=== PATIENT | female | born 1940 | race Caucasian/White ===

== ENCOUNTER 2018-02-12 08:46 | Emergency (ER) | payer MEDICARE, BC ==
[2018-02-12 09:00] VITALS: BP 110/57
--- NOTE | 2018-02-12 09:46 | UC ---
Evy Moses Gabriel, scribed for Yessica Irwin MD on 02/12/18 at 0938 . Skin Complaint HPI - HPI Summary HPI Summary: This patient is a 77 year old F presenting to [facility] c/o a dark spot on her neck that she noticed yesterday while looking in the mirror at her new haircut. The patient rates the pain 0/10 in severity. Patient denies pain. Pt has had two precancerous spots one on her leg and one on her nose. No hx of skin cancer. 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 no drainage, no trauma. Pt unsure how long present. Patients medication reviewed this visit. - History of Current Complaint Chief Complaint: UCSkin Time Seen by Provider: 02/12/18 09:31 Stated Complaint: SPOT ON BACK OF NECK Hx Obtained From: Patient Onset/Duration: Still Present Timing: Constant Onset Severity: Mild Current Severity: Mild Pain Intensity: 0 Pain Scale Used: 0-10 Numeric Location: Other - back of neck Associated Signs & Symptoms: Positive: Negative - pain - Allergy/Home Medications Allergies/Adverse Reactions: Allergies Allergy/AdvReac Type Severity Reaction Status Date / Time No Known Allergies Allergy Verified 02/12/18 08:59 Home Medications: Home Medications Amlodipine Besylate [Norvasc 5 mg tab] 5 mg PO DAILY 02/12/18 [History Confirmed 02/12/18] Calcium Carbonate/Vitamin D3 [Calcium 600 + Vit D Tablet] 1 each PO 02/12/18 [ History] Carvedilol TAB* [Coreg TAB*] 25 mg PO BID 02/12/18 [History Confirmed 02/12/18] Cholecalciferol (Vitamin D3) [Vitamin D3] 2,000 unit PO 02/12/18 [History] Valsartan TAB* [Diovan TAB*] 160 mg PO DAILY 02/12/18 [History Confirmed ] Review of Systems Skin: Other - black spot on neck Musculoskeletal: Negative - pain All Other Systems Reviewed And Are Negative: Yes PMH/Surg Hx/FS Hx/Imm Hx Previously Healthy: Yes Cardiovascular History: Hypertension Other History Of: Negative For: Hepatitis C - Surgical History Surgical History: Yes Surgery Procedure, Year, and Place: Tubal Ligation. Rhinoplasty - Family History Known Family History: Positive: Hypertension Negative: Respiratory Disease, Seizure Disorder - Social History Occupation: Retired Lives: With Family Alcohol Use: Rare Substance Use Type: None Smoking Status (MU): Never Smoked Tobacco Physical Exam Triage Information Reviewed: Yes Appearance: Well-Appearing, No Pain Distress, Well-Nourished Vital Signs: Initial Vital Signs Temp 98.0 F 02/12/18 08:57 Pulse 82 02/12/18 08:57 Resp 18 02/12/18 08:57 BP 110/57 02/12/18 08:57 Pulse Ox 97 02/12/18 08:57 Vital Signs Reviewed: Yes Eye Exam: Normal Eyes: Positive: Conjunctiva Clear ENT Exam: Normal ENT: Positive: Normal ENT inspection, Pharynx normal, TMs normal, Uvula midline Dental Exam: Normal Neck exam: Normal Neck: Positive: Supple, Nontender, No Lymphadenopathy Respiratory Exam: Normal Respiratory: Positive: Chest non-tender, Lungs clear, Normal breath sounds, No respiratory distress, No accessory muscle use Cardiovascular Exam: Normal Cardiovascular: Positive: RRR, No Murmur Abdominal Exam: Normal Abdomen Description: Positive: Nontender, No Organomegaly, Soft Bowel Sounds: Positive: Present Musculoskeletal Exam: Normal Musculoskeletal: Positive: Strength Intact Neurological Exam: Normal Neurological: Positive: Alert, Muscle Tone Normal Psychological Exam: Normal Psychological: Positive: Normal Response To Family Skin: Positive: Other - left posterior scalp at hair line pt wtih 0.5mm appears inflammed follicle with dark contents- no drainage, no erythema, non tender. no fluctuance well circumscribed no odor Course/Dx - Course Course Of Treatment: Pt with lesion posterior scalp - appears to be inflammed follicle, but contents black in color. no drainage no erythema. recommend moist heat. 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 does not appear to be cancerous - likely follicle inflammation but concern related to dark color. pt comfortable and in agreement with plan - Diagnoses Provider Diagnoses: skin lesion Discharge - Sign-Out/Discharge Documenting (check all that apply): Discharge/Admit/Transfer - Discharge Plan Condition: Stable Disposition: HOME Patient Education Materials: Folliculitis (ED) Referrals: Wolf Glass MD [Medical Doctor] - 1 Week (Call today to schedule an appointment) Additional Instructions: The doctor that evaluated you today is not sure the cause of your rash. The prodiver thinks it is an inflammed follicle and not concerned for infection. Due to the darkened color, it is recommended you be evaluated by a table games shift manager. You may either contact your table games shift manager in [place] or the local table games shift manager you have been contact information Okay to apply warm, wet wash cloth 2-3 times a day Take Tylenol every 6 hours for pain. Contact your doctor, return here, or go to the emergency department with questions or concerns - Billing Disposition and Condition Condition: STABLE Disposition: HOME The documentation as recorded by the Evy beltran Gabriel accurately reflects the service I personally performed and the decisions made by me, Yessica Irwin MD.
== END 2018-02-12 09:59 | disposition home or self-care (01) ==
LOC: UCEAST 08:46
DX: M79.9 Soft tissue disorder, unspecified (principal); I10 Essential (primary) hypertension
CPT/HCPCS: 99211; G0463

== ENCOUNTER 2018-10-09 19:37 | Observation (INO) | payer MEDICARE, BC ==
--- NOTE | 2018-10-09 20:01 | ED ---
Shortness of Breath - HPI Summary HPI Summary: This patient is a 78 year old F brought in by ambulance accompanied by her with a chief complaint of SOB since this morning. Patient reports slight fever, decreased appetite, left sided wheezes, and dry cough. Patient denies CP, abd pain, VIEYRA, or LE edema. The patient states that her SOB started with a cough this morning that rapidly became worse by the afternoon. In the ambulance, the breathing treatment helped her difficulty breathing significantly. The patient mentioned that her has been sick for a week. PMHX HTN, tubal ligation, broken nose. No PMHx respiratory problems. No SHX tobacco use, EtOH use. RX Lasix, 10mg once a week. - History of Current Complaint Time Seen by Provider: 10/09/18 19:45 Hx Obtained From: Patient Onset/Duration: Sudden Onset, Lasting Hours Timing: Constant Current Severity: Mild Dyspnea At: Rest Alleviating Factors: EMS Tx Associated Signs & Symptoms: Cough (Nonproductive), Wheezing - Allergy/Home Medications Allergies/Adverse Reactions: Allergies Allergy/AdvReac Type Severity Reaction Status Date / Time No Known Allergies Allergy Verified 02/12/18 08:59 PMH/Surg Hx/FS Hx/Imm Hx Endocrine/Hematology History: Denies: Hx Diabetes, Hx Thyroid Disease Cardiovascular History: Reports: Hx Hypertension Respiratory History: Denies: Hx Asthma, Hx Chronic Obstructive Pulmonary Disease (COPD) GI History: Denies: Hx Ulcer Musculoskeletal History: Denies: Hx Osteoporosis - Surgical History Surgery Procedure, Year, and Place: Tubal Ligation. Rhinoplasty Infectious Disease History: Denies: Hx Hepatitis, Hx Human Immunodeficiency Virus (HIV), Traveled Outside the [place] in Last 30 Days - Family History Known Family History: Positive: Hypertension Negative: Respiratory Disease, Seizure Disorder - Social History Alcohol Use: Rare Substance Use Type: Reports: None Smoking Status (MU): Never Smoked Tobacco Review of Systems Positive: Fever - slight Negative: Chest Pain Positive: Shortness Of Breath, Cough, Other - wheezes Gastrointestinal: Other - decreased appetite Negative: Abdominal Pain Negative: Edema Negative: Headache All Other Systems Reviewed And Are Negative: Yes Physical Exam - Summary Physical Exam Summary: Appearance: Well-appearing, Well-nourished, lying in bed comfortably Skin: Warm, dry, no obvious rash Eyes: sclera anicteric, no conjunctival pallor ENT: mucous membranes moist, pharynx appears normal Neck: Supple, nontender Respiratory: Clear to auscultation, no signs of respiratory distress. Expiratory wheezing noted. Cardiovascular: Normal S1, S2. No murmurs. Normal distal pulses in tibial and radial bilaterally. Abdomen: Soft, nontender, normal active bowel sounds present Musculoskeletal: Normal, Strength/ROM Intact Neurological: A&Ox3, awake and alert, mentation is normal, speech is fluent and appropriate Psychiatric: affect is normal, does not appear anxious or depressed Triage Information Reviewed: Yes Vital Signs Reviewed: Yes Diagnostics - Laboratory Result Diagrams: 10/09/18 20:47 10/09/18 20:47 Lab Statement: Any lab studies that have been ordered have been reviewed, and results considered in the medical decision making process. - Radiology CXR Radiology Interpretation Completed By: ED Physician Summary of Radiographic Findings: No acute disase, pending official radiology report. - EKG 20:07 Cardiac Rate: Tachycardia - 102 bpm EKG Rhythm: Sinus Tachycardia Summary of EKG Findings: borderline right axis deviation Course/Dx - Course Course Of Treatment: This patient is a 78 year old F brought in by ambulance accompanied by her with a chief complaint of SOB since this morning. Patient reports slight fever, decreased appetite, left sided wheezes, and dry cough. Patient denies CP, abd pain, VIEYRA, or LE edema. An EKG reveals sinus tachycardia 102 bpm and borderline right axis deviation. CXR reveals, per ED physician, no acute disease. Pending official radiology report. Test results with no significant abnormalities. In the ED course the patient was given Albuterol and Azithromycin. We discussed patient care with Dr. Mckeon and they recommended admission. - Diagnoses Provider Diagnoses: Bronchitis with bronchospasm, Hypoxemia - Physician Notifications Discussed Care of Patient With: Imelda Mckeon Time Discussed With Above Provider: 00:26 Instructed by Provider To: Admit As Inpatient Discharge - Sign-Out/Discharge Documenting (check all that apply): Patient Departure - admission - Discharge Plan Condition: Fair Disposition: ADMITTED TO [facility] - Billing Disposition and Condition Condition: FAIR Disposition: Admitted to [facility] - Attestation Statements Document Initiated by Scribe: Yes Documenting Scribe: Gavin Julio Provider For Whom Scribe is Documenting (Include Credential): Javan Smith MD Scribe Attestation: Gavin Moses, scribed for Javan Smith MD on 10/10/18 at 0447. Scribe Documentation Reviewed: Yes Provider Attestation: The documentation as recorded by the scribe, Gavin Julio accurately reflects the service I personally performed and the decisions made by me, Javan Smith MD Status of Scribe Document: Viewed
[2018-10-09 21:01] LABS: ABS Basophils 0.2 10^3/ul (0-0.2); ABS Eosinophils 0.2 10^3/ul (0-0.6); ABS Lymphocytes 1.6 10^3/ul (1.0-4.8); ABS Monocytes 0.3 10^3/ul (0-0.8); ABS Neutrophils 8.8 10^3/ul (1.5-7.7); ABS Nucleated RBC 0 10^3/ul; Eosinophil % 1.7 %; Hematocrit 36 % (35-47); Hemoglobin 12.1 g/dl (12.0-16.0); Lymphocyte % 14.6 %; Mean Corpuscular HGB Conc 33 g/dl (31-36); Mean Corpuscular Hemoglobin 31 pg (27-31); Mean Corpuscular Volume 92 fL (80-97); Mean Platelet Volume 9.1 fL (7.4-10.4); Nucleated Red Blood Cells % 0; Platelet Count 241 10^3/ul (150-450); Red Blood Count 3.93 10^6/ul (4.00-5.40); Red Cell Distribution Width 14 % (10.5-15); White Blood Count 11.1 10^3/ul (3.5-10.8)
[2018-10-09 21:19] LABS: Albumin 4.1 g/dL (3.2-5.2); Albumin/Globulin Ratio 1.3 (1-3); BUN/Creatinine Ratio 16.3 (8-20); Calcium 9.7 mg/dL (8.6-10.3); EGFR Non-African American 36.2 (>60); Globulin 3.2 g/dL (2-4); Potassium 4.1 mmol/L (3.5-5.0); Total Bilirubin 0.4 mg/dL (0.2-1.0); Total Protein 7.3 g/dL (6.4-8.9)
[2018-10-10] MEDS ORDERED: Albuterol 2.5 MG/3 ML NEB.SOL* (0.083%) INH ONE (00:22)
[2018-10-10] MEDS ORDERED: Azithromycin TAB* 250 MG PO ONE (00:22)
[2018-10-10] MEDS ORDERED: Al Hydrox/Mg Hydrox/Simet LIQ* 30 ML UDC PO PRN (00:51)
[2018-10-10] MEDS ORDERED: Acetaminophen TAB* 325 MG PO PRN (00:51)
[2018-10-10] MEDS ORDERED: methylPREDNISolone 125 MG* 2 ML VIAL IV ONE (00:51)
[2018-10-10] MEDS ORDERED: Ondansetron INJ* 2 MG/ML VIAL IV PRN (00:51)
[2018-10-10] MEDS ORDERED: Albuterol 2.5 MG/3 ML NEB.SOL* (0.083%) INH PRN (00:53)
[2018-10-10] MEDS ORDERED: Benzonatate CAP* 100 MG PO PRN (00:56)
[2018-10-10] MEDS ORDERED: NS 0.9% 1000 ML* 1,000 ML IV SCH (01:00)
--- NOTE | 2018-10-10 04:49 | HP ---
CC: Aleah Bliss MD * HISTORY AND PHYSICAL: DATE OF ADMISSION: 10/10/18 TIME OF EVALUATION: 0100. PRIMARY CARE PHYSICIAN: Aleah Bliss MD CHIEF COMPLAINT: Shortness of breath. HISTORY OF PRESENT ILLNESS: This is a 78-year-old female with unremarkable past medical history who presented to the emergency room with acute onset of shortness of breath. The patient states she woke up this morning with cough, sore throat, and congestion. Her was recently sick with similar presentation. Throughout the day, her coughing continued to get worse and her breathing became more labored with difficulty breathing, and she finally told her to call the EMS. When EMS arrived, her respiratory rate was in the 30s, her sat was 89, she was wheezing. She got neb treatment in EMS and in the emergency room and Zithromax tablet. She initially improved; however, when Dr. Smith went into reevaluate her, her sats were dipping down into the low 90s and she was wheezing again. Recommendation was to admit her overnight for observation. The patient denies any chest pain. No fevers. No nausea, vomiting, or diarrhea. No abdominal pain. No urinary symptoms. She has never needed inhalers or nebulizers in the past. She denies any exposures either. Otherwise, remaining review of systems is negative. In the emergency room, as mentioned, the patient was given nebulizer treatment, Zithromax 500 mg, and referred to the hospitalist service. PAST MEDICAL HISTORY: Hypertension. MEDICATIONS: 1. Lasix 10 mg p.o. weekly. 2. Calcium with vitamin D 1 tab daily. 3. Amlodipine 5 mg daily. 4. Vitamin D3 2000 units daily. 5. Coreg 37.5 mg p.o. b.i.d. ALLERGIES: No known drug allergies. FAMILY HISTORY: Mother from cirrhosis related to alcohol use. Father in his 80s from stroke. SOCIAL HISTORY: The patient lives at home with her who is her healthcare proxy. No history of smoking. Rare alcohol use. No illicit drug use. Code status is full code. REVIEW OF SYSTEMS: A 14-point review of systems as mentioned in the HPI, otherwise negative. PHYSICAL EXAMINATION GENERAL: No acute distress, resting comfortably. VITAL SIGNS: Temp is 98.6, pulse rate is 90, respiratory rate is 20, oxygen saturation is 98% on 2 L, and blood pressure 140/88. HEENT: Head: Normocephalic. Pupils equal and reactive, anicteric. Oropharynx : Mucous membranes moist. Posterior erythema. No exudate. NECK: Supple. No nuchal rigidity. RESPIRATORY: Bilateral expiratory wheezing. No increased work of breathing. CARDIAC: Regular rate and rhythm. Soft systolic murmur heard throughout. ABDOMEN: Soft, nontender, and nondistended. EXTREMITIES: No clubbing, cyanosis, or edema. +1 DPs. NEUROLOGIC: Alert and oriented x3. No gross focal neurologic deficits. DIAGNOSTIC STUDIES/LAB DATA: White count 11.1, hemoglobin 12.1, hematocrit 36 , platelets 241. Sodium 141, potassium 4.1, chloride 109, bicarb 24, BUN 23, creatinine 1.41, glucose 115, lactic acid 0.8. Troponin 0.03. Flu is negative. Chest x-ray, no significant findings. EKG shows sinus tach with a rate of 102. ASSESSMENT: This is a 78-year-old female with unremarkable past medical history who presents to the emergency room with acute onset of shortness of breath in the setting of an upper respiratory infection illness. 1. Shortness of breath: Assessment: The patient's history and physical are consistent with reactive airway diseases secondary to a viral illness. Did not appear to have pneumonia on her chest x-ray or her presentation. I suspect this is infectious, though she has no history of needing nebulizers or inhalers in the past. Plan: We will give her a dose of Solu-Medrol down in the emergency room and start her on prednisone 40 mg daily. Continue her on albuterol nebulizers and gentle IV fluids. If she does not clinically improve overnight, I recommend further workup for other etiologies. 2. Chronic medical problems: Hypertension. We will resume her amlodipine and carvedilol. 3. Fluids, electrolytes, and nutrition: We will place the patient on a regular diet with gentle IV fluids. 4. DVT prophylaxis: The patient scores high risk, we will place her on heparin subcutaneous t.i.d. 5. Code status: Full code. PATIENT TIME: Greater than 75 minutes was spent doing history and physical, more than half the time spent in direct patient contact and critical care time. [id number]/[facility] #: [id number] [facility]
[2018-10-10] MEDS ORDERED: Heparin VIAL(*) 5000 UNITS/ML VIAL (FIVE THOUSAND) SUBCUT SCH (06:00)
[2018-10-10 06:28] LABS: ABS Basophils 0.1 10^3/ul (0-0.2); ABS Eosinophils 0 10^3/ul (0-0.6); ABS Lymphocytes 1.2 10^3/ul (1.0-4.8); ABS Monocytes 0 10^3/ul (0-0.8); ABS Neutrophils 8.8 10^3/ul (1.5-7.7); ABS Nucleated RBC 0 10^3/ul; Eosinophil % 0 %; Hematocrit 36 % (35-47); Hemoglobin 12.1 g/dl (12.0-16.0); Mean Corpuscular HGB Conc 34 g/dl (31-36); Mean Corpuscular Hemoglobin 31 pg (27-31); Mean Corpuscular Volume 93 fL (80-97); Nucleated Red Blood Cells % 0.1; Platelet Count 247 10^3/ul (150-450); Red Blood Count 3.88 10^6/ul (4.00-5.40); Red Cell Distribution Width 14 % (10.5-15); White Blood Count 10.1 10^3/ul (3.5-10.8)
[2018-10-10 06:45] LABS: BUN/Creatinine Ratio 17.6 (8-20); Calcium 9.2 mg/dL (8.6-10.3); EGFR Non-African American 41.6 (>60)
[2018-10-10] MEDS ORDERED: predniSONE TAB* 10 MG PO ONE (08:38)
[2018-10-10] MEDS ORDERED: Albuterol HFA INHALER* 8 gm MDI INH PRN (08:43)
[2018-10-10] MEDS ORDERED: Carvedilol TAB* 25 MG PO SCH (09:00)
[2018-10-10] MEDS ORDERED: predniSONE TAB* 20 MG PO SCH (09:00)
[2018-10-10] MEDS ORDERED: amLODIPine TAB* 5 MG PO SCH ×3 (09:00→21:00)
--- NOTE | 2018-10-10 11:14 | DS ---
CC: Dr. Aleah Bliss DISCHARGE SUMMARY: DATE OF ADMISSION: DATE OF DISCHARGE: 10/10/18 HISTORY OF PRESENT ILLNESS: This 78-year-old woman presented with shortness of breath and wheezing a nd cough. She became ill the evening of 10/08/18. Her had been sick with a similar illness for a couple of days before that. During the day of 10/09/18, she became worse and came to the emerge ncy room. She was found to be wheezing. She was given intravenous methylprednisolone and nebulized bronchodilators. She feels much better the morning of discharge. She had faint wheezing in both upp er lung nicole. The breathing was quite and regular. There was no cough. She never had a productive cough. She got one dose of azithromycin in the emergency room. The patient received 60 mg of prednisone p.o. the morning of discharge. She will get 10 mg tablets a nd taper from 5 to 0 over the next 5 days. She was given an albuterol inhaler with an aortic chamber to use at home and had dose here before discharge. I noted rapid flu test was negative. The patient has never smoked. She did have wheezing with a sim ilar illness about a year ago in [place] and received prednisone with good results. FINAL DIAGNOSES: 1. Acute viral bronchitis. 2. Hypertension. DISCHARGE MEDICATIONS: 1. Amlodipine 2.5 mg every morning, 5 mg at bedtime. 2. Prednisone 10 mg tablet taper from 5 to 0 over 5 days. 3. Furosemide 10 mg once weekly. 4. Carvedilol 37.5 mg b.i.d. 5. Vitamin D3 2000 units daily. 6. Calcium with vitamin D 1 tablet daily. CONDITION ON DISCHARGE: Improved. DISPOSITION ON DISCHARGE: Discharged home. [id number]/[facility] #: [id number]
[2018-10-10 12:00] VITALS: BP 119/63
== END 2018-10-10 13:59 | disposition home or self-care (01) ==
LOC: ED 19:37 → SSU 10-10 00:51
PROVIDERS: ADMIT Pediatrics; ATTEND Pediatrics
DX: J20.8 Acute bronchitis due to other specified organisms (principal); R06.02 Shortness of breath; R06.2 Wheezing; R05 Cough; I10 Essential (primary) hypertension; R09.02 Hypoxemia
CPT/HCPCS: 36415; 71046; 80048; 80053; 83605; 84484; 85025; 87040; 93005; 96361; 96372; 96374; 96375; 99285; A9270-GY; G0378; J1644; J2930; J7512

== ENCOUNTER → 2018-11-03 05:46 | Day surgery (SDC) | payer MEDICARE, BC ==
[~2018-11-03 05:46] MED LIST: Bacitracin OINTMENT* 0.5% 0.5 oz TUBE ONE; Buffered Lidocaine 1% SYRIN* 1 ML/SYRINGE INTRADERM ONE; Bupivacaine 0.5%* 50 ML VIAL ONE; Lactated Ringers 1000 ML Bag* 1,000 ML IV SCH; Lidocaine 2% JELLY* 20 ML (for OR use) ONE; Lidocaine 2% PF * 5 ML VIAL ONE; Midazolam* 1 MG/ML 2 ML VIAL (2 MG) ONE; Propofol* 10 MG/ML 20 ML BTL ONE; ceFOXitin 2 GM IVPREMIX* 2 GM/50 ML BAG ONE; fentaNYL* 50 MCG/ML 2 ML VIAL (100 MCG VIAL) ONE
[2018-11-03 13:06] VITALS: BP 113/69
--- NOTE | 2018-11-03 21:43 | OP ---
DATE OF OPERATION: 11/03/18 - [facility] DATE OF : 42 ATTENDING SURGEON: Woody Cervantes MD PRE-OP DIAGNOSIS: Hemorrhoids. POST-OP DIAGNOSIS: Internal/external hemorrhoid, large. OPERATIVE PROCEDURE: Hemorrhoidectomy. INDICATIONS FOR PROCEDURE: Large hemorrhoid. Risks of surgery included but not limited to bleeding, infection explained to the patient who seemed understanding and agreed for the procedure and all questions were answered. DESCRIPTION OF PROCEDURE: The patient was taken to the operating room, placed in the prone jackknife position. Preoperative antibiotics were given. Sedation was given by the anesthesiologist. A roll was placed under the hips, buttocks were taped apart exposing buttocks, internal/external hemorrhoid. The area was prepped and draped in a sterile fashion. Time-out was performed indicating correct patient and correct procedure. Outline of the hemorrhoid was marked with a pen. Skin was anesthetized with 0.5% Marcaine plain. Bovie cautery was used to excise the skin, mucosa and hemorrhoidal tissue being careful to avoid the musculature. EBL was minimal. Hemostasis was intact. The defect was closed with a running 3-0 chromic suture. Antibiotic ointment was applied with a gauze dressing. She tolerated the procedure well. [id number]/[facility] #: [id number] [facility]
== END | disposition home or self-care (01) ==
LOC: OR 05:46
PROVIDERS: ATTEND Surgery
DX: K64.5 Perianal venous thrombosis (principal); I10 Essential (primary) hypertension; I42.9 Cardiomyopathy, unspecified; Z87.442 Personal history of urinary calculi
CPT/HCPCS: 88304; A9270-GY; J0694; J2250; J2704; J3010